=== PATIENT | female | born 1945 | race Caucasian/White ===

== ENCOUNTER → 2023-10-23 | Day surgery (SDC) | payer OTHER ==
[~2023-10-23] VITALS: Ht 162.5 cm; Wt 95.3 kg
[~2023-10-23] MED LIST: ASPIRIN ADULT L81 M2 PO; Balanced Salt Solution 500 ML OPH SCH; COREG6.25 MG PO; Cefuroxime Sodium 5 MG in BALANCED SALT IRRIG SOLN NO.2 0.5 ML,SYRINGE, DISPOSABLE, 10 ... IO SCH; KLOR-CON 1010 ME1 PO; LASIX20 MG PO; LEVOTHYROXINE112 MC1 PO; LOVASTATIN40 MG PO; Midazolam Hydrochloride 2 MG/2 ML VIAL IV ONE; OFLOXACIN 0.3% 5 ML BOTTLE ONE; OFLOXACIN 0.3% 5 ML BOTTLE OPH SCH; PHENYLEPHRINE/KETOROLAC 4 ML in Balanced Salt Solution 500 ML OPH SCH; POVIDONE IODINE 5% OPHTHALMIC 30 ML BOTTLE OPH ONE; POVIDONE IODINE 5% OPHTHALMIC 30 ML BOTTLE OPH SCH; Phenylephrine Hydrochloride 2 ML BOT OPH ONE; Phenylephrine Hydrochloride 2 ML BOT OPH SCH; Proparacaine Hydrochloride 15 ML BOT OPH ONE; Proparacaine Hydrochloride 15 ML BOT OPH SCH; SODIUM CHLORIDE 0.9% 1,000 ML IV SCH; TETRACAINE HCL 10 DROP BOT OPH SCH; TROPICAMIDE 3 ML BOT OPH ONE; TROPICAMIDE 3 ML BOT OPH SCH; Tetracaine Hydrochloride 0.5% 4 ML BOT OPH ONE; Tetracaine Hydrochloride 0.5% 4 ML BOT OPH SCH; prednisoLONE acetate 1% OPHTHALMIC 5 ML BOT OPH ONE; prednisoLONE acetate 1% OPHTHALMIC 5 ML BOT OPH SCH
[2023-10-23 12:50] VITALS: BP 162/52
[2023-10-23 13:53] VITALS: BP 154/58
[2023-10-23 14:08] VITALS: BP 159/57
[2023-10-23 14:27] VITALS: BP 144/56
[2023-10-23 14:45] VITALS: BP 147/42
[2023-10-23 14:54] VITALS: BP 145/78
== END | disposition home or self-care (01) ==
LOC: SDC 10-18 11:45
PROVIDERS: ATTEND Ophthalmology
DX: H25.12 Age-related nuclear cataract, left eye (principal); I10 Essential (primary) hypertension; E78.00 Pure hypercholesterolemia, unspecified; E03.9 Hypothyroidism, unspecified; I25.10 Atherosclerotic heart disease of native coronary artery without angina pectoris; Z95.5 Presence of coronary angioplasty implant and graft; Z90.49 Acquired absence of other specified parts of digestive tract; Z96.651 Presence of right artificial knee joint; Z96.652 Presence of left artificial knee joint; Z98.890 Other specified postprocedural states; Z79.890 Hormone replacement therapy; Z79.82 Long term (current) use of aspirin; Z79.899 Other long term (current) drug therapy

== ENCOUNTER → 2023-12-18 | Day surgery (SDC) | payer OTHER ==
[~2023-12-18] VITALS: Ht 162.5 cm; Wt 95.3 kg
[2023-12-18 10:58] VITALS: BP 172/82
[2023-12-18 12:33] VITALS: BP 125/59
[2023-12-18 12:48] VITALS: BP 143/75
[2023-12-18 13:02] VITALS: BP 149/74
== END | disposition home or self-care (01) ==
LOC: SDC 12-13 13:15
PROVIDERS: ATTEND Ophthalmology
DX: H25.11 Age-related nuclear cataract, right eye (principal); I10 Essential (primary) hypertension; I25.10 Atherosclerotic heart disease of native coronary artery without angina pectoris; E78.00 Pure hypercholesterolemia, unspecified; Z96.653 Presence of artificial knee joint, bilateral; Z98.42 Cataract extraction status, left eye; Z90.49 Acquired absence of other specified parts of digestive tract; Z87.891 Personal history of nicotine dependence; Z95.5 Presence of coronary angioplasty implant and graft; Z91.040 Latex allergy status; Z79.82 Long term (current) use of aspirin; Z79.890 Hormone replacement therapy; Z79.899 Other long term (current) drug therapy